=== PATIENT | female | born 1955 | race Caucasian/White ===

== ENCOUNTER 2017-09-15 15:10 | Emergency (ER) | payer OTHER ==
[~2017-09-15] VITALS: Ht 177.8 cm; Wt 68.0 kg
[~2017-09-15 15:10] MED LIST: LEVSOD75 PO
[2017-09-15] MEDS ORDERED: PRED20 PO (16:54)
[2017-09-15] MEDS ORDERED: Duoneb 2.5-0.5 M3 ML INH (16:54)
== END 2017-09-15 17:23 | disposition home or self-care (01) ==
LOC: ER 15:10
DX: J44.1 Chronic obstructive pulmonary disease with (acute) exacerbation (principal); Z79.899 Other long term (current) drug therapy; E03.9 Hypothyroidism, unspecified; F17.200 Nicotine dependence, unspecified, uncomplicated
CPT/HCPCS: 71046; 94640; 99283

== ENCOUNTER → 2019-09-02 | Outpatient (CLI) | payer OTHER ==
[~2019-09-02] MED LIST changes: +Duoneb 2.5-0.5 M3 ML INH; +PRED20 PO
== END ==
LOC: LAB SHORT 12:10 → LAB 12:10
PROVIDERS: Radiology Therapeutic Radiology
DX: C53.9 Malignant neoplasm of cervix uteri, unspecified (principal)
CPT/HCPCS: G0145

== ENCOUNTER → 2025-02-28 | Outpatient (CLI) | payer MEDICARE, BC, OTHER ==
[2025-02-28 20:20] LABS: BASOPHILS ABSOLUTE AUTO 0.04 K/mm3 (0.00-0.23); BASOPHILS PERCENT AUTO 0 % (0-2); EOSINOPHILS ABSOLUTE AUTO 0.12 K/mm3 (0.00-0.68); EOSINOPHILS PERCENT AUTO 1 % (0-6); Hematocrit 47.9 % (33.0-51.0); Hemoglobin 15.7 g/dL (11.5-16.0); IMMATURE GRAN ABSOLUTE AUTO 0.05 K/mm3 (0.00-0.10); IMMATURE GRAN PERCENT AUTO 0 % (0-1); LYMPHOCYTES ABSOLUTE AUTO 1.89 K/mm3 (0.84-5.20); LYMPHOCYTES PERCENT AUTO 16 % (21-46); MONOCYTES ABSOLUTE AUTO 0.77 K/mm3 (0.16-1.47); MONOCYTES PERCENT AUTO 7 % (4-13); Mean Corpuscular HGB 30.2 pg (26.0-34.0); Mean Corpuscular HGB Conc 32.8 g/dL (31.5-36.5); Mean Corpuscular Volume 92 fL (80-100); Mean Platelet Volume 9.8 fL (9.1-12.4); NEUTROPHILS ABSOLUTE AUTO 8.79 K/mm3 (1.96-9.15); NEUTROPHILS PERCENT AUTO 76 % (41-73); Platelet Count 321 K/mm3 (150-400); RDW Coefficient Variation 14.9 % (11.7-14.2); White Blood Cell Count 11.66 K/mm3 (4.00-11.30)
[2025-02-28 20:41] LABS: Alanine Aminotransfer (ALT/SGP 31 U/L (12-78); Albumin/Globulin Ratio 1.1 (0.8-1.8); Alk Phos 86 U/L (50-136); Anion Gap 8 mmol/L (3-11); Aspartate Aminotrans (AST/SGOT 21 U/L (12-37); Bilirubin, Total 0.5 mg/dL (0.1-1.0); Blood Urea Nitrogen 16 mg/dL (8-24); Bun/Creatinine Ratio 17.3 (12.0-20.0); CHOL/HDL RATIO 3.1; CO2, Blood 28 mmol/L (21-32); Calcium, Blood 8.8 mg/dL (8.5-10.1); Chloride, Blood 105 mmol/L (98-108); Cholesterol 242 mg/dL (50-200); Creatinine, Blood 0.93 mg/dL (0.40-1.00); Globulin, Blood 3.6 g/dL (2.2-4.0); Glomerular Filtration Rate 67 (60-); Glucose, Blood 95 mg/dL (70-99); HDL Cholesterol 79 mg/dL (>39); LDL/HDL RATIO 1.7; Low Density Lipoprotein Chol 136 mg/dL (0-110); Potassium, Blood 4.5 mmol/L (3.5-5.5); Sodium, Blood 136 mmol/L (136-145); Total Protein, Blood 7.6 g/dL (6.4-8.2); Triglycerides 137 mg/dL (30-160); Very Low Density Lipoprot Chol 27 mg/dL (6-32)
== END | disposition home or self-care (01) ==
LOC: LAB SHORT 16:50 → LAB 16:50
PROVIDERS: Student in an Organized Health Care Education/Training Program
DX: E03.9 Hypothyroidism, unspecified (principal)
CPT/HCPCS: 80053; 80061; 84443; 85025

== ENCOUNTER → 2025-05-11 | Outpatient (CLI) | payer MEDICARE, OTHER | END | disposition home or self-care (01) | LOC: LAB 19:04 → LAB SHORT 19:04 | PROVIDERS: Student in an Organized Health Care Education/Training Program | DX: Z01.419 Encounter for gynecological examination (general) (routine) without abnormal findings (principal) | CPT/HCPCS: 87624; G0145 ==

== ENCOUNTER 2025-08-08 09:26 | Day surgery (SDC) | payer MEDICARE ==
[~2025-08-08] VITALS: Ht 149.9 cm; Wt 69.6 kg
[~2025-08-08 09:26] MED LIST changes: +ATOR40TA PO; +LEVSOD25 PO; +Lidocaine HCl 2% 10 ML SDA ONE
[2025-08-08] MEDS ORDERED: CeFAZolin Sodium 2,000 MG VIAL ONE (09:32)
[2025-08-08] MEDS ORDERED: FentaNYL Citrate 50 MCG/ML 2 ML Injection ONE (10:02)
--- NOTE | 2025-08-08 10:07 | NUR ---
08/08/25 RAFI ROACH PT WAITING FOR OR. DR. MANN HAS SEEN PT. PT'S SON GOING TO WAIT OUTSIDE FOR HER. CALL LIGHT IN REACH. EDUCATED PT ON PRE OP/POST OP TEACHING, ALL QUESTIONS ASKED AND ANSWERED.
[2025-08-08] MEDS ORDERED: Phenylephrine HCl 100 MCG/ML-NS 10MLSYR (1MG/10ML) ONE (10:43)
[2025-08-08] MEDS ORDERED: Ondansetron HCl 2 MG / ML 2ML Vial ONE (10:59)
[2025-08-08] MEDS ORDERED: Dexamethasone Sod Phos 10 MG/ML 1ML VIAL ONE (10:59)
[2025-08-08 12:11] VITALS: BP 114/86
--- NOTE | 2025-08-08 12:13 | NUR ---
08/08/25 1213 Selma Lancaster PT ABLE TO TOLERATE FLUIDS AND SNACKS WELL. PT STATED HER PAIN LEVEL WAS A 1/10. NO C/O NAUSEA. PT'S SON AT SIDE OF RECLINER. PT PLEASANT AND COOPERATIVE WITH CARE PROVIDED. ALL QUESTIONS ANSWERED, CONCERNS ADDRESSED WHILE GOING OVER DISCHARGE INSTRUCTIONS. PT ASSISTED TO PRIVATE VEHICLE. PT'S GAIT UNSTEADY WHEN GETTING UP FROM THE BED/RECLINER. STAND BY ASSIST WITH TRANSFERS.
== END 2025-08-08 12:05 | disposition home or self-care (01) ==
LOC: ORSCSDS 09:26
PROVIDERS: Orthopaedic Surgery
PROC: 01N40ZZ Release Ulnar Nerve, Open Approach (ICD-10-PCS; principal; 2025-08-08 10:30)
DX: G56.23 Lesion of ulnar nerve, bilateral upper limbs (principal); J44.9 Chronic obstructive pulmonary disease, unspecified; E03.9 Hypothyroidism, unspecified; Z79.899 Other long term (current) drug therapy; F17.210 Nicotine dependence, cigarettes, uncomplicated
CPT/HCPCS: J0690; J1100; J2003; J2371; J2405; J2704; J3010; J7120